=== PATIENT | female | born 1970 | race Caucasian/White ===

== ENCOUNTER 2016-10-04 12:22 | Emergency (ER) | payer MEDICAID ==
[~2016-10-04] VITALS: Ht 154.9 cm; Wt 84.0 kg
[2016-10-04 12:25] VITALS: Ht 154.9 cm; Wt 84.0 kg
[2016-10-04] MEDS ORDERED: ACET325T33 PO (12:51)
[2016-10-04] MEDS ORDERED: IBUP400T22 PO (12:51)
[2016-10-04] MEDS ORDERED: GUAI-637 PO (12:51)
--- NOTE | 2016-10-04 13:28 | ERD ---
ER Documentation Chief Complaint Date/Time DATE: 10/04/16 TIME: 13:23 Chief Complaint FEVER AND COUGH SINCE LAST NIGHT HPI This is a 45-year-old female presenting to the emergency department with fever and cough since last night. Patient states she has had tactile fevers at home. Took Tylenol yesterday. No medications today. Cough is dry and nonproductive. No shortness of breath or difficulty breathing. No sore throat or difficulty swallowing. ROS All systems reviewed and are negative except as per history of present illness. Medications Home Meds Active Scripts Ibuprofen* (Motrin*) 400 Mg Tab, 400 MG PO Q6, #15 TAB Prov:ELVIE COTTO NP 10/04/16 Acetaminophen* (Tylenol*) 325 Mg Tablet, 1 TAB PO Q6 Y for PAIN AND OR ELEVATED TEMP, #20 TAB Prov:ELVIE COTTO NP 10/04/16 Guaifenesin* (Robitussin*) 100 Mg/5 Ml Syrup, 200 MG PO Q4H Y for COUGH, #120 ML Prov:ELVIE COTTO NP 10/04/16 Allergies Allergies: Coded Allergies: No Known Allergy (Unverified , 04/05/14) PMhx/Soc Medical and Surgical Hx: pt denies Medical Hx, pt denies Surgical Hx History of Surgery: No Anesthesia Reaction: No Hx Neurological Disorder: No Hx Respiratory Disorders: No Hx Cardiac Disorders: No Hx Psychiatric Problems: No Hx Miscellaneous Medical Probl: No Hx Alcohol Use: No Hx Substance Use: No Hx Tobacco Use: No Smoking Status: Never smoker Physical Exam Vitals Vital Signs Date Time Temp Pulse Resp B/P Pulse Ox O2 Delivery O2 Flow Rate FiO2 10/04/16 12:25 98.5 92 19 126/69 97 Physical Exam Const: No acute distress, alert Head: Atraumatic Eyes: Normal Conjunctiva ENT: Normal External Ears, Nose and Mouth. Neck: Full range of motion..~ No meningismus. No lymphadenopathy. Resp: Clear to auscultation bilaterally. No wheezing, rhonchi or crackles. No stridor or labored breathing. Patient is talking in complete sentences. Cardio: Regular rate and rhythm, no murmurs Abd: Soft, non tender, non distended. Normal bowel sounds Skin: No petechiae or rashes Back: No midline or flank tenderness Ext: No cyanosis, or edema Neur: Awake and alert Psych: Normal Mood and Affect Procedures/MDM MDM: This is a 45-year-old female presenting to the emergency department with tactile fevers and cough since yesterday. Upon arrival patient is afebrile with normal vital signs. No signs or symptoms of respiratory distress. Oxygen saturation 97% on room air. Patient is talking in complete sentences. Lung exam and ENT exam are normal. Low suspicion for pneumonia, pleural effusion, pneumothorax or acute MO. Differential diagnosis includes but not limited to URI, influenza, otitis media , otitis externa, asthma exacerbation, croup, bronchitis, bronchiolitis and costochondritis. Patient is appropriate for outpatient management and will be given prescription for ibuprofen and Robitussin. Instructed patient to follow-up with primary care provider in the next 2-3 days for reassessment and additional management. Return to ED for any high fever, chest pain, difficulty breathing, shortness breath, wheezing, vomiting, diarrhea, abdominal pain or any new or worsening symptoms. Patient verbalizes understanding. All questions answered at discharge. Yi translation used during this encounter. Departure Diagnosis: Primary Impression: URI, acute Condition: Stable Patient Instructions: Uri, Viral, No Abx (Adult) [facility] Usted se healy hecho un examen mdico de control que le indica que no est en syd condicin que requiera tratamiento urgente en el Departamento de Emergencia. Un estudio ms profundo y el tratamiento de lee condicin pueden esperar sin ningn riesgo hasta que usted sea atendida/o en el consultorio de lee mdico o syd cl tavia. Es responsabilidad suya arreglar syd jesse para el seguimiento del mitzy. MANEJO DE CONDICIONES NO URGENTES EN EL FUTURO 1) Si usted tiene un mdico de atencin primaria: Usted debera llamar a lee mdico de atencin primaria antes de venir al departamento de emergencia. Despus de las horas de consultorio, lee doctor o lee asociado/a est disponible por telfono. El mdico o enfermero de shereen en el servicio telefnico puede asesorarle por nila medio para atender el problema, o mitzy contrario se puede programar syd jesse. 2) Si usted no tiene un mdico de atencin primaria: Llame al mdico o clnica de referencia que aparece abajo hi las horas de consultorio para hacer syd jesse para que le vean. CLINICAS: [facility] [phone] [facility] [phone] [facility] [phone] [place] [address] [phone] [place] [address] [phone] [facility] [phone] [address] [facility] [facility] () [place] se healy hecho un examen mdico de control que le indica que no est en syd condicin que requiera tratamiento urgente en el Departamento de Emergencia. Un estudio ms profundo y el tratamiento de lee condicin pueden esperar sin ningn riesgo hasta que ted sea atendida/o en el consultorio de lee mdico o syd cl tavia. Es responsabilidad suya arreglar syd jesse para el seguimiento del mitzy. MANEJO DE CONDICIONES NO URGENTES EN EL FUTURO 1) Si usted tiene un mdico de atencin primaria: Usted debera llamar a lee mdico de atencin primaria antes de venir al departamento de emergencia. Despus de las horas de consultorio, lee doctor o lee asociado/a est disponible por telfono. El mdico o enfermero de shereen en el servicio telefnico puede asesorarle por nila medio para atender el problema, o mitzy contrario se puede programar syd jesse. 2) Si usted no tiene un mdico de atencin primaria: Llame al mdico o condado institucions de referencia que aparece abajo hi las horas de consultorio para hacer syd jesse para que le vean. SI USTED NO PUEDE PAGAR PARA MUNIRA UN MEDICO puede ir a: [facility] [address] [place] [address] [facility] [address] [place] [address] [facility] [address] [place] [address] [facility] [address] [place], [place] [id number] Additional Instructions: Llame al doctor MAANA y clarita syd JESSE PARA DENTRO DE 2-3 DUMAS.Dgale a la secretaria que nosotros le instruimos hacer esta jesse.Avise o llame si lee condicin se empeora antes de la jesse. Regresa aqui si peor o no mejor. Regresar a ED por fiebre suzanne, dolor en el pecho, dificultad para respirar, respiracin entrecortada, sibilancias, vmitos, diarrea, dolor abdominal o cualquier sntoma nuevo o que empeora. ELVIE COTTO NP Oct 04, 2016 13:28
== END 2016-10-04 13:41 | disposition home or self-care (01) ==
LOC: FTE 12:22
DX: J06.9 Acute upper respiratory infection, unspecified (principal)
CPT/HCPCS: 99283

== ENCOUNTER 2017-01-10 23:16 | Emergency (ER) | payer MEDICAID ==
[~2017-01-10] VITALS: Wt 82.6 kg
[~2017-01-10 23:16] MED LIST: ACET325T33 PO; GUAI-637 PO; IBUP400T22 PO
--- NOTE | 2017-01-11 01:35 | ERD ---
ER Documentation Chief Complaint Chief Complaint painful/burning urination x1 week HPI This 46-year-old female presents to emergency department for evaluation of vaginal itching and d/c, dysuria, has balanitis ROS All systems reviewed and are negative except as per history of present illness. Medications Home Meds Active Scripts Fluconazole* (Diflucan*) 150 Mg Tablet, 150 MG PO ONCE, #1 TAB Prov:ALANCHANDANA 01/11/17 Ibuprofen* (Motrin*) 400 Mg Tab, 400 MG PO Q6, #15 TAB Prov:ELVIE COTTO NP 10/04/16 Acetaminophen* (Tylenol*) 325 Mg Tablet, 1 TAB PO Q6 Y for PAIN AND OR ELEVATED TEMP, #20 TAB Prov:ELVIE COTTO NP 10/04/16 Guaifenesin* (Robitussin*) 100 Mg/5 Ml Syrup, 200 MG PO Q4H Y for COUGH, #120 ML Prov:ELVIE COTTO NP 10/04/16 Allergies Allergies: Coded Allergies: No Known Allergy (Unverified , 04/05/14) PMhx/Soc History of Surgery: No Anesthesia Reaction: No Hx Neurological Disorder: No Hx Respiratory Disorders: No Hx Cardiac Disorders: No Hx Psychiatric Problems: No Hx Miscellaneous Medical Probl: No Hx Alcohol Use: No Hx Substance Use: No Hx Tobacco Use: No Physical Exam Vitals Vital Signs Date Time Temp Pulse Resp B/P Pulse Ox O2 Delivery O2 Flow Rate FiO2 01/10/17 23:19 97.1 81 20 134/69 98 Vitals stable, triage notes reviewed Physical Exam Const: Nourished well-hydrated well-appearing 46-year-old female in no acute distress Head: Eyes: ENT: Neck: Resp: Cardio: Abd: Soft, non tender, non distended. Normal bowel sounds Pelvic exam; deferred Skin: Back: Ext: Neur: Awake and alert Psych: Normal Mood and Affect Results 24 hrs Laboratory Tests Test 01/11/17 01:20 01/11/17 01:46 Urine Color YELLOW Urine Clarity CLEAR Urine pH 5.0 Urine Specific [place] 1.026 Urine Ketones NEGATIVEmg/dL Urine Nitrite NEGATIVEmg/dL Urine Bilirubin NEGATIVEmg/dL Urine Urobilinogen NEGATIVEmg/dL Urine Leukocyte Esterase NEGATIVELeu/ul Urine Hemoglobin NEGATIVEmg/dL Urine Glucose NEGATIVEmg/dL Urine Total Protein NEGATIVEmg/dl Bedside Urine pH (LAB) 6.0 Bedside Urine Protein (LAB) Negative Bedside Urine Glucose (UA) Negative Bedside Urine Ketones (LAB) Negative Bedside Urine Blood Negative Bedside Urine Nitrite (LAB) Negative Bedside Urine Leukocyte Esterase (L Negative Urinalysis negative for leukocytosis, hematuria, or nitrates Procedures/MDM This 46-year-old female presents to emergency department for evaluation of, vaginal itching, and dysuria, patient reports has been treated several times for balanitis,, patient states that her told her to come in for treatment, patient's is well-known to nurse practitioner and has been seen on 2 separate occasions, I did request that come in for treatment as well. Plan to treat patient with Diflucan 150mg 1 tab p.o. and have patient follow-up with gynecology for routine well woman evaluation. Urinalysis negative for evidence of infection. Patient is stable with no new complaints during ER course, clinically there is no current evidence to suggest meningitis , sepsis, acute abdomen, tract infection, pyelonephritis or any other emergent condition appearing to require further evaluation or hospitalization. I feel the patient is stable for discharge at this time. I have discussed results, examination findings, the treatment plan with the patient and family present prior to discharge. Indications for emergent reevaluation, side effects of medication were also discussed. All questions were answered. Patient verbalizes understanding and agrees with plan of care. Departure Condition: Good Patient Instructions: Vaginal Infection: Yeast (Candidiasis) Referrals: [facility] Additional Instructions: Thank you for for coming to [facility] for your care today. Please ask your nurse or provider if you have questions about your care today and do not leave until all your questions have been answered. Please use any medications given as directed and follow-up with your doctor (or the doctor you were referred to) in the next 2-3 days. If you do not have a primary care doctor you may follow up at the [facility] (listed below). You may also use motrin and tylenol as needed for fever and/or pain unless instructed otherwise by your provider or nurse. Indications for more urgent follow-up have been discussed, but you may return to the Emergency Department at ANY time for any worrisome or worsening symptoms. If you have abdominal pain, please know that no test or exam you received is perfect and you should follow up within 8 hours for continued pain. If you had any imaging studies today, such as an X-Ray or CT Scan, these studies will be reviewed later by a radiologist. You will be called if there are important findings that were not identified today, so make sure the contact information you provided at registration is correct. If you received any narcotic pain control medicine today, such as Vicodin, Morphine or Dilaudid, your coordination and judgment may be affected for a number of hours. Please do not drive or operate heavy machinery, and you may want someone to assist you at home. If you were given a prescription for narcotic medication, be aware that it is very addictive- use sparingly and only if necessary. CHANDANA PHILLIPS Jan 11, 2017 01:35
[2017-01-11] MEDS ORDERED: FLUC150T17 PO (03:29)
== END 2017-01-11 03:38 | disposition home or self-care (01) ==
LOC: FTE 23:16
DX: N89.8 Other specified noninflammatory disorders of vagina (principal)
CPT/HCPCS: 81003; Z7502; 99283